=== PATIENT | male | born 1940 | race Caucasian/White ===

== ENCOUNTER 2017-08-11 08:00 | Observation (INO) ==
[2017-08-11 08:22] VITALS: BMI 30.2
[2017-08-11] MEDS: SOTALOL 80 MG TABLET PO SCH ×2 (11:32→19:09)
--- NOTE | 2017-08-11 12:29 | Cardiology History & Physical ---
History of Present Illness Chief complaint: palpitations HPI: Bryant is a 77 year old male who is known to Dr. Candelario with a history of SVT who had a new onset A Fib and started on Eliquis 5mg BID on 07/28. Today he is being admitted for observation for antiarrhythmic therapy on Sotalol Review of Systems - Constitutional Constitutional: Absent: chills, fatigue, fever(s) - EENMT Eyes: Absent: change in vision Balance: Absent: vertigo Mouth/Throat: Absent: sore throat - Cardiovascular Cardiovascular: Present: palpitations. Absent: chest pain, syncope, dyspnea on exertion, orthopnea, edema, heart murmur Rhythm: Absent: abnormal rhythm Vascular: Absent: pedal edema - Respiratory Respiratory: Absent: cough, dyspnea, dyspnea on exertion - Gastrointestinal Gastrointestinal: Absent: constipation, diarrhea, nausea, vomiting - Genitourinary Genitourinary: Absent: dysuria - Integumentary/Breasts Integumentary: Absent: rash - Neurological Neurological: Absent: dizziness - Endocrine Endocrine: Present: palpitations PFSH Patient Stated Medical History Cerebrovascular Accident No Paralysis No Seizures No Syncope No Angina No Cardiac Arrhythmia Yes: A FIB Congestive Heart Failure No Coronary Artery Disease No Heart Murmur No Hypertension No Hypotension No Myocardial Infarction No Rheumatic Fever No Valvular Heart Disease No Other Cardiology No Asthma No Bronchitis No Chronic Obstructive Pulmonary No Disease (COPD) Pneumonia No Pulmonary Edema No Pulmonary Embolism No Sleep Apnea No Tuberculosis No Other Respiratory No Diabetes Mellitus Type 1 No Diabetes Mellitus Type 2 No Gastroesophageal Reflux Yes: no meds. no nocturnal symptoms Disease Osteoarthritis No Other Musculoskeletal No Anesthesia Reactions No Blood Transfusions No Chemotherapy No Malignant Hyperthermia No Other No Depression No Now No Clinic Medical History (Last Updated 06/16/17 @ 15:15 by Graciela Crain, [employer] ATTENDANT) Diverticulosis (Acute Medical) Schatzki's ring (Acute Medical) Surgical History: -Colonoscopy normal diverticultos 07/16/2012. -EGD with Dolatation 05/01/2010. -EGD. -Colonoscopy diverticulosis 09/28/2003 Family History: Bryant reports no relevant family history of heart disease, NM, CVA, - Social History Smoking status: Never smoker Substance use type: does not use Alcohol intake frequency: does not drink Household members: spouse Current occupational status: retired Current residence: Apartment/Private Home Medications Home Medications Medication Instructions Recorded Confirmed Type Simvastatin [Zocor] 5 mg PO BID 08/10/17 08/11/17 History Apixaban [Eliquis] 5 mg PO BID 08/11/17 08/11/17 History Allergies Allergy/AdvReac Type Severity Reaction Status Date / Time No Known Allergies Allergy Unverified 05/01/10 12:35 Exam Vital signs: Pulse Rate 70 08/11/17 11:32 Respiratory Rate 18 08/11/17 08:18 Blood Pressure 131/67 08/11/17 09:00 Pulse Oximetry 96 08/11/17 08:18 - Constitutional no acute distress, cooperative - Routine HEENT Exam Head: Present: normocephalic ENT: Present: mucous membranes moist - Routine Neck Exam Absent: JVD, carotid bruit - Routine Chest/Breast/Axilla Exam Chest wall: Absent: tenderness - Routine Respiratory Exam Present: CTA bilaterally. Absent: rales, wheezes - Routine Cardiovascular Exam Present: RRR, S1, S2, no murmur - Routine Abdominal Exam Present: soft, normoactive bowel sounds, non tender - Routine Extremities Exam Present: no edema, pulses intact - Routine Skin Exam Present: intact, dry, warm - Routine Neurological Exam Present: alert, oriented X3 - Routine Psychiatric Exam Present: normal affect, normal thought process Results 08/12/17 04:03 08/12/17 04:03 Cardiac Enzymes 08/11/17 Range/Units 09:09 AST 37 (17-59) U/L CBC 08/11/17 Range/Units 09:09 WBC 10.1 (4.5-11.0) T/MM3 RBC 5.13 (4.50-5.90) M/MM3 Hgb 15.9 (13.5-17.5) GM/DL Hct 46.9 (41-53) % Plt Count 149 (130-400) T/MM3 Neut # (Auto) 6.8 (1.8-7.7) T/MM3 Lymph # (Auto) 2.0 (1-4.8) T/MM3 Elliott # (Auto) 0.9 H (0-0.8) T/MM3 Eos # (Auto) 0.3 (0-0.5) T/MM3 Baso # (Auto) 0.1 (0-0.2) T/MM3 Comprehensive Metabolic Panel 08/11/17 Range/Units 09:09 Sodium 142 (134-144) MEQ/L Potassium 3.9 (3.6-5) MEQ/L Chloride 106 (98-107) MEQ/L Carbon Dioxide 25 (22-30) MEQ/L BUN 19.0 (9-20) MG/DL Creatinine 0.9 (0.8-1.5) mg/dL Glucose 107 (75-110) MG/DL Calcium 9.6 (8.4-10.2) MG/DL AST 37 (17-59) U/L ALT 20 (1-50) U/L Alkaline Phosphatase 64 (38-126) U/L Total Protein 7.1 (6.3-8.2) g/dL Albumin 4.2 (3.5-5.0) g/dL Intake and Output 08/10/17 08/11/17 08/11/17 22:59 06:59 14:59 Other: Weight 216 lb 7.903 oz Patient Weight 08/12/17 06:59 Weight 216 lb 7.903 oz EKG interpretations - EKG EKG results cardiology: sinus rhythm Hospital Course This is a general summary of the patient's hospital course. For more details refer to the complete medical record. Time spent with patient: 25 - 35 minutes Resuscitation Status: Full Code Assessment and Plan - Attestation Attestation Narrative: 08/12/17 07:49 Recommendation After examining the patient I agree with the above assessment. I am involved in the formulation of the patient's plan of care. - Assessment and Plan (1) Paroxysmal atrial fibrillation Current visit: Yes Status: Acute New onset A Fib and started on Eliquis 5mg BID on 07/28. - Today he is being admitted for observation for antiarrhythmic therapy on Sotalol as ordered - EKG: SR - CBC, CMP, TSH and MAG - Monitor cardiac telemetry - EKG in am (2) Supraventricular tachycardia Current visit: Yes Status: Acute Continue current therapy with routine monitoring
[2017-08-11 16:44] VITALS: O2SAT 94
[2017-08-11] MEDS: APIXABAN 5 MG TABLET PO SCH (20:43)
[2017-08-11] MEDS ORDERED: SIMVASTATIN 10 MG TABLET PO SCH (21:00)
[2017-08-12] MEDS: SOTALOL 80 MG TABLET PO SCH (06:44)
[2017-08-12 07:27] VITALS: BP 124/67; RESP 16; TEMP 96
[2017-08-12] MEDS: APIXABAN 5 MG TABLET PO SCH (08:01)
[2017-08-12 10:05] VITALS: PULSE 61
== END 2017-08-12 10:45 | disposition home or self-care (01) ==
LOC: MED
PROVIDERS: ADMIT Internal Medicine Cardiovascular Disease; ATTEND Internal Medicine Cardiovascular Disease